=== PATIENT | male | born 1980 | race Caucasian/White ===

== ENCOUNTER 2018-05-23 21:23 | Inpatient (IN) ==
--- NOTE | 2018-05-24 01:09 | ED ---
HPI General Chief Complaint: Psychiatric Symptoms Stated Complaint: transfer/eval Time Seen by Provider: 05/23/18 23:50 Source: patient and EMS Mode of arrival: EMS Limitations: no limitations History of Present Illness HPI Narrative: This is a 37-year-old white male who presents emergency department as a transfer from [facility] in [facility] to be evaluated by the psychiatrist. Patient was placed under Massey act after a intentional overdose of Coricidin. Patient states that he was not attempting to hurt himself but was rather trying to get some sleep. Patient had been medically cleared. He has transferred here for psychiatric evaluation. The patient states that he has not been sleeping in the last month. He was given Ativan, Seroquel and Depakote in the hospital. The patient is requesting something for sleep today. The patient denies any active medical complaints otherwise. Patient denies any suicidal or homicidal ideation. Past medical history: Patient states that he is under the care of a psychiatrist for OCD. Surgical history: Denies Social history: Drinks alcohol on a daily basis Related Data Home Medications Medication Instructions Recorded Confirmed cyclobenzaprine 10 PO HS PRN 05/23/18 propranolol 60 mg PO HS 05/23/18 05/23/18 trazodone 50 PO HS 05/23/18 Allergies Allergy/AdvReac Type Severity Reaction Status Date / Time risperidone [From Risperdal] Allergy Rash Verified 05/23/18 21:48 Review of Systems ROS: all other systems reviewed are negative [facility] Medical History Medical History OCD (obsessive compulsive disorder) (Acute) Social History Social History Substance History: Active Abuse Smoking Status: Never smoker How Often Do You Have a Drink Containing Alcohol: Monthly or less Recent Travel in [place] within the Last 8 Weeks: No Recent Out of Country Travel within the Last 8 Weeks: No Substance Abuse Detail Other: Substance Use Status: Active Substance Abuse Comment: COUGH AND COLD Immunization History Tetanus Immunization: Unsure Exam Narrative Exam Narrative: GENERAL: Well-nourished, well-developed patient. SKIN: Warm and dry. HEAD: Normocephalic and atraumatic. EYES: No scleral icterus. No injection or drainage. ENT: No nasal drainage noted. Mucous membranes pink. Airway patent. NECK: Supple, trachea midline. Moves head freely without obvious discomfort. CARDIOVASCULAR: Regular rate and rhythm without murmurs, gallops, or rubs. RESPIRATORY: Breath sounds equal bilaterally. No accessory muscle use. GASTROINTESTINAL: Abdomen soft, non-tender, nondistended. EXTREMITIES: No cyanosis or edema. BACK: Nontender without obvious deformity. No CVA tenderness. NEURO: Patient is alert and oriented. no sensorimotor deficits. Nonfocal. Normal speech. PSYCH: No delusions. No auditory or visual hallucinations. Course Initial Documented Vital Signs Temperature 98.8 F 05/23/18 22:14 Pulse Rate 93 H 05/23/18 22:14 Respiratory Rate 18 05/23/18 22:14 Blood Pressure 125/92 H 05/23/18 22:14 Pulse Oximetry 98 05/23/18 22:14 Last Documented Vital Signs Temperature 98.8 F 05/23/18 22:14 Pulse Rate 93 H 05/23/18 22:14 Respiratory Rate 18 05/23/18 22:14 Blood Pressure 125/92 H 05/23/18 22:14 Pulse Oximetry 98 05/23/18 22:14 Medical Decision Making MDM Narrative Medical decision making narrative: The patient has already been medically cleared prior to coming to [place] as a transfer. I reviewed the patient's medical record. I have agreed to give the patient 50 mg of Benadryl p.o. here for sleep. Medical Screen Exam Complete: Yes Emergency Medical Condition: Yes Differential Diagnosis Differential Diagnosis: MDM: High Differential diagnoses: Schizophrenia, schizoaffective disorder, bipolar, anxiety, depression, adjustment reaction, mood disorder NOS, ODD, depressive disorder NOS, dementia, dementia with agitation, psychosis NOS, substance induced mood disorder, DMDD, Asperger syndrome, infection,electrolyte abnormality, malingering. Mental health screening discussed with the patient. Psychiatric screen ordered. Discharge Plan Discharge Disposition Patient Disposition: Sign Out(ED Internal Use Only) Discharge Condition Condition: Stable Physicians Team ED Provider: Domenico Diego ED Midlevel Provider: Xavi Brown Primary Care Provider: Primary Care Luisi,Kamini Rxs /Orders / Referrals /Forms Prescriptions: No Action propranolol 60 mg Tablet 60 mg PO HS RF: 0 cyclobenzaprine 10 PO HS PRN (Reason: Pain) RF: 0 trazodone 50 PO HS RF: 0 Discharge Interventions Interventions: Vital Signs Last Done: 05/23/18 22:14 Status ED Status: With Doctor
[2018-05-24] MEDS ORDERED: Aluminum/Magnesium/Simethacone Susp 30 ML UDC PO PRN (09:48)
[2018-05-24] MEDS ORDERED: LORazepam 1 MG Tablet PO PRN (09:48)
[2018-05-24] MEDS ORDERED: Haloperidol Inj 5 MG/ML Ampul IV.PUSH PRN (09:48)
[2018-05-24] MEDS ORDERED: Bisacodyl 10 MG Supp RECTAL PRN (09:48)
--- NOTE | 2018-05-24 12:50 | P.HPPSY ---
Provisional Diagnosis Admission Date: May 24, 2018 09:50 [place] I.: Adjustment disorder with depressed mood vs major depressive disorder, substance- induced mood disorder, history of schizophrenia, alcohol and cannabis use disorder, rule out malingering Competence Certification of Person's Competence To Provide Express and Informed Consent I have personally examined Eliezer Rodriguez, a person being served at [facility] on, May 24, 2018 1243. Express and informed consent means consent voluntarily given in writing, by a competent person, after sufficient explanation and disclosure of the subject matter involved to enable the person to make a knowing and willful decision without any element of force, fraud, deceit, duress, or other form of constraint or coercion. This person is 18 years of age or older, is not now known to be incompetent to consent to treatment with a guardian advocate, and does not have a health care surrogate or proxy currently making medical treatment decisions. I have found this person to be one of the following: [] Competent to provide express and informed consent, as defined above, for voluntary admission to this facility and is competent to provide express and informed consent for treatment. He/she has the consistent capacity to make well reasoned, willful, and knowing decisions concerning his or her medical or mental health treatment. The person fully and consistently understands the purpose of the admission for examination/placement and is fully capable of personally exercising all rights assured under [place] [] Incompetent to provide express and informed consent to voluntary admission, and this is incompetent to provide express and informed consent to treatment. The person must be transferred to involuntary status and a petition for a guardian advocate filed with the Circuit Court. [x] Refusing to provide express and informed consent to voluntary admission but is competent to provide express and informed consent for treatment. The person must be discharged or transferred to involuntary status. Form shall be completed within 24 hours of a person's arrival at the receiving facility and filed in the clinical record of each person: 1. Admitted on a voluntary basis 2. Permitted to provide express and informed consent to his/her own treatment 3. Allowed to transfer from involuntary to voluntary status 4. Prior to permitting a person to consent to his or her own treatment after having been previously found incompetent to consent to treatment. History of Present Illness Capacity: Has capacity History of Present Illness: The patient is a 37-year-old man, domiciled in [place] with his father, single, unemployed, recently released from senior care on May 04, with a self-reported psychiatric history of OCD, anxiety, schizophrenia, alcohol and cannabis use disorder, previous psychiatric hospitalizations, one suicidal attempt by cutting, self cutting without SI, he claims that he has been treated with Seroquel 400 mg at bedtime, diazepam 10 mg 3 times daily, Depakote 500 mg twice daily, but this treatment was interrupted in senior care, no significant medical history, who presents emergency department as a transfer from [facility] in [facility] to be evaluated by the psychiatrist. Patient was placed under Massey act after a intentional overdose of Coricidin. Patient states that he was not attempting to hurt himself but was rather trying to get some sleep, he says that the fact that he has not been taking his medication is affecting him. He reports that he has not been able to sleep for more than 2 weeks now for this reason he has been feeling increasingly depressed. He also reports that the fact that he is not taking his Seroquel and Depakote is making him decompensate. He reports increased hopelessness, helplessness, generalized pessimism, decreased functionality, severe insomnia, poor appetite, and suicidal thoughts, but he does not have any plan. He denies homicidal ideation , visual and auditory hallucinations. The patient is logical, coherent and relevant. Oriented x3. He has been behaving appropriately in the ER, but asking for sleeping medication quite often. PPHx: self-reported psychiatric history of OCD, anxiety, schizophrenia, alcohol and cannabis use disorder, previous psychiatric hospitalizations, one suicidal attempt by cutting, self cutting without SI, he claims that he has been treated with Seroquel 400 mg at bedtime, diazepam 10 mg 3 times daily, Depakote 500 mg twice daily, but this treatment was interrupted in senior care, no significant medical history PMhx: no significant medical history Substance Hx: He reports occasional use of alcohol and marijuana Family Hx: No family psychiatric history Social Hx: Patient was born and raised in [place], he lives in [place] with his father, single, unemployed, multiple incarcerations, recently released on May 04, highest level of education is some college - Inpatient Certification I certify that the inpatient services were ordered in accordance with Medicare regulations governing the order. This includes certification that hospital inpatient services are reasonable and necessary and in the case of services not specified as inpatient-only under 42 CFR 419.22(n), that they are appropriately provided as inpatient services in accordance to with the 2-midnight benchmark under 43 CFR 412.3(e) I certify that inpatient psychiatric hospital services are medically necessary. Evaluation and treatment and/or diagnostic testing are expected to improve the patient's condition. The patient needs on a daily basis, active treatment furnished directly by or requiring the supervision of inpatient psychiatric facility personnel. Estimated Total Length of Stay (Days): 7 Plans for Post Hospital Care: Home Review of Systems All other systems reviewed negative except as stated in HPI Psychiatric: Reports depression, Reports hopelessness, Reports irritability, Reports thoughts of hurting/killing yourself PMFSH - History History Provided By: Patient, Medical Record - Medical History Medical History: Medical History (Last Reviewed 05/24/18 @ 01:08 by HODAN Carey) OCD (obsessive compulsive disorder) - Tobacco History Second Hand Smoke Exposure: No Tobacco Use In Past 30 Days: Yes Smoking Status: Current every day smoker Tobacco Type: Cigars - Alcohol History How Often Do You Have a Drink Containing Alcohol: 4 or more times a week - Substance Use History Substance History: Past History - Substance Use Type Other Status: Active Comment: COUGH AND COLD - Travel History Recent Travel in the [place] Within the Last 8 Weeks: No Recent Travel Out of the Country Within the Last 8 Weeks: No - Immunization History Tetanus Immunization: Unsure Medications and Allergies Active Medications: Active Medications Al Hydrox/Mg Hydrox/Simethicone (Mag-Al Plus Susp Liq) 30 ml PO Q6H PRN PRN Reason: DYSPEPSIA Al Hydroxide/Mg Hydroxide (Milk Of Magnesia Liq) 30 ml PO Q12H PRN PRN Reason: Mild Constipation Bisacodyl (Dulcolax Supp) 10 mg RECTAL DAILY PRN PRN Reason: SEVERE CONSITIPATION Flumazenil (Romazecon Inj) 0.2 mg IV.PUSH Q1M PRN PRN Reason: OVERSEDATION Haloperidol Lactate (Haldol Inj) 1 mg IV.PUSH Q15M PRN PRN Reason: for severe agitation Lactulose (Lactulose Liq) 30 ml PO DAILY PRN PRN Reason: SEVERE CONSITIPATION Lorazepam (Ativan) 1 mg PO Q4H PRN PRN Reason: for CIWA 8-10 Lorazepam (Ativan) 2 mg PO Q2H PRN PRN Reason: for CIWA 11-14 Last Admin: 05/24/18 12:07 Dose: 2 mg Lorazepam (Ativan Inj) 2 mg IV.PUSH Q1H PRN PRN Reason: for CIWA 15-20 Lorazepam (Ativan Inj) 2 mg IV.PUSH Q15M PRN PRN Reason: for CIWA > 20 Lorazepam (Ativan Inj) 1 mg IV.PUSH Q4H PRN PRN Reason: for CIWA 8-10 Lorazepam (Ativan Inj) 2 mg IV.PUSH Q2H PRN PRN Reason: for CIWA 11-14 Propranolol HCl (Inderal La) 60 mg PO HS CHANDA Quetiapine Fumarate (Seroquel) 100 mg PO BID CHANDA Senna/Docusate Sodium (Ariadne-Colace) 1 tab PO BID CHANDA Sennosides (Senokot) 17.2 mg PO Q12H PRN PRN Reason: Moderate Constipation Trazodone HCl (Desyrel) 50 mg PO HS [facility] Allergies Allergy/AdvReac Type Severity Reaction Status Date / Time risperidone [From Risperdal] Allergy Rash Verified 05/23/18 21:48 Home Medications Medication Instructions Recorded Confirmed Type cyclobenzaprine 10 PO HS PRN 05/23/18 History propranolol 60 mg PO HS 05/23/18 05/23/18 History trazodone 50 PO HS 05/23/18 History Exam Vital signs: Vital Signs 05/23/18 22:14 05/24/18 04:00 05/24/18 11:43 Temperature 98.8 F 98.5 F 98.6 F Pulse Rate 93 H 66 87 Respiratory Rate 18 Blood Pressure 125/92 H 111/74 115/71 Pulse Oximetry 98 97 99 Intake & Output 05/23/18 05/24/18 05/24/18 18:59 06:59 18:59 Weight 90.718 kg 82.2 kg Other: Weight On Admission 82.2 kg Narrative: No tremors, no EPS, no withdrawal symptoms, no stiffness, no gait disturbance, no catatonia - Constitutional mild distress - Routine HEENT Exam Head: Present: normocephalic, atraumatic Eye: Present: EOMI, PERRL ENT: Present: mucous membranes moist Mental Status Examination Appearance: Appropriate Consciousness: Alert Orientation: x4 Motor Activity: Normal gait Speech: Unremarkable Language: Adequate Fund of Knowledge: Adequate Attention and Concentration: Adequate Memory: Unremarkable Mood: Sad Affect: Irritable Thought Process & Associations: Intact Thought Content: Appropriate Hallucination Type: None Delusion Type: None Suicidal Ideation: Yes Suicidal Plan: No Suicidal Intention: No Homicidal Ideation: No Homicidal Plan: No Homicidal Intention: No Insight: Poor Judgment: Poor Assessment and Plan - Assessment (1) Adjustment disorder with depressed mood Code(s): F43.21 - Adjustment disorder with depressed mood Status: Acute - Plan Plan: On psychiatric evaluation today the patient presents irritable, reporting about 2 weeks of increased difficulty to sleep, described as severe insomnia, in the context of not taking his psychotropics which have led to increased sense of hopelessness, helplessness, anhedonia, generalized pessimism, decreased energy, persistent suicidal thoughts, no plan. Patient has overdosed with medications 2 days ago trying to get to sleep. He has a psychiatric history of reported schizophrenia, anxiety, previous psychiatric admissions, suicidal attempts, he claims that he is supposed to be diazepam 10 mg, Seroquel 400 mg, Depakote 500 mg twice daily, this has not been confirmed. He was recently released from senior care about 2 weeks ago, during his incarceration her psychotropic regimen was interrupted and since then he has been decompensated. Unclear at this moment if current presentation is related with a mood disorder decompensation, substance abuse related issue, a personality pathology or even conscious simulation, but the patient has an increased risk of danger to self and he will be admitted in psychiatry for stabilization, observation and safety. We will start Seroquel 100 mg twice daily, trazodone 100 mg at bedtime. Also [facility] protocol to protect the patient from alcohol and benzodiazepines withdrawal. Transfer to 2700 unit. Justification for Continued Inpatient Stay: Continue admission
[2018-05-24] MEDS: QUEtiapine 100 MG Tablet PO SCH ×2 (12:52→20:55)
[2018-05-24] MEDS: Senna/Docusate Sodium 8.6/50 MG Tablet PO SCH (20:55)
[2018-05-24] MEDS: Propranolol LA 60 MG Capsule PO SCH (20:55)
[2018-05-24] MEDS ORDERED: traZODone 50 MG Tablet PO SCH (21:00)
[2018-05-25 08:01] LABS: Anion Gap 7 meq/L (5-15); Blood Urea Nitrogen 14 mg/dL (7-18); Calcium 9.4 mg/dL (8.5-10.1); Carbon Dioxide 29.5 meq/L (21.0-32.0); Chloride 104 meq/L (98-107); Cholesterol 162 mg/dL (120-200); Glomerular Filtration Rate Greater Than 89 mL/min (>89); Glucose,Random 86 mg/dL (74-106); Potassium 3.9 meq/L (3.5-5.1); Sodium 140 meq/L (136-145)
[2018-05-25 08:03] LABS: Chol/HDL Ratio 3.81 Ratio; HDL Cholesterol 42.5 mg/dL (40.0-60.0); LDL Cholesterol,Calculated 75 mg/dL (0-99); Triglycerides 222 mg/dL (42-150)
[2018-05-25] MEDS: Senna/Docusate Sodium 8.6/50 MG Tablet PO SCH ×2 (08:27→20:31)
[2018-05-25] MEDS: QUEtiapine 100 MG Tablet PO SCH (08:27)
--- NOTE | 2018-05-25 13:39 | P.PNPSY ---
Subjective Chief Complaint: Follow-up for depression, anxiety, and chronic insomnia. Remarks: Patient seen for follow-up, chart reviewed, patient discussed with nursing staff ; we reviewed the patient's mood, thoughts, and behaviors from overnight and this morning. Nursing reports the patient has been mostly seclusive to his room quite cooperative. The patient was seen at bedside today after breakfast. He denies a history of bipolar disorder or symptoms of psychosis other than hypnagogic or hypnopompic hallucinations when sleep deprived. He reports a past diagnosis of OCD that he describes as anxious ruminations about stressors in his life and he cannot stop himself thinking about it. He denies any compulsive behaviors. He denies ego dystonic thoughts or actions. He reports failed treatment with [facility] in the past. He is also been treated with buspirone and most of the SSRIs. Patient has never been tried on an SSRI. Patient reports being treated with Valium 10 mg 3 times a day for the past 2 years and this was indeed confirmed with a E force. Patient reports that Seroquel and Depakote were started while he was under the Massey act at the referring hospital and he reports good response to Seroquel and he would like to continue. Patient acknowledges that he needs help getting his mood and sleep -wake cycle stabilized and requests voluntary admission. Review of Systems All other systems reviewed negative except as stated in HPI Mental Status Examination Appearance: Appropriate Consciousness: Alert Orientation: x4 Motor Activity: Normal gait Speech: Unremarkable Language: Adequate Fund of Knowledge: Adequate Attention and Concentration: Adequate Memory: Unremarkable Mood: Sad, Anxious Affect: Sad, Blunt Thought Process & Associations: Intact Thought Content: Appropriate Hallucination Type: None Delusion Type: None Suicidal Ideation: Yes (Passive wish but no active ideations or plan) Suicidal Plan: No Suicidal Intention: No Homicidal Ideation: No Homicidal Plan: No Homicidal Intention: No Insight: Poor Judgment: Poor Assessment and Plan - Assessment (1) Major depressive disorder, recurrent, severe w/o psychotic behavior Code(s): F33.2 - Major depressive disorder, recurrent severe without psychotic features Status: Acute (2) Anxiety disorder, unspecified Code(s): F41.9 - Anxiety disorder, unspecified Status: Acute - Plan Plan: 05/25/2018: Fair response to treatment, the patient reportedly slept 8 hours overnight however he did not feel that his sleep was restorative. Review of the patient's psychiatric history indicates that he suffers from chronic anxiety with recurrent depressive episodes and had an exacerbation after being off his medications for 2 weeks while incarcerated. Patient most likely had developed a dependency on Valium over the last 2 years which further complicated his ability to tolerate his recent incarceration. Patient reportedly has tried many different treatments for his anxiety and mood and after discussion of risks benefits side effects and alternatives he chooses to start an SSRI for treatment of anxiety and depression and continue Seroquel as an adjunctive treatment of his depression and continue buspirone as an adjunctive treatment of his anxiety. Continue inpatient stabilization and treatment but convert to voluntary status. Increase Seroquel to 400 mg at bedtime for adjunctive treatment of mood and anxiety as this dose was tolerated and effective prior to this admission. Start Cymbalta 30 mg/day for treatment of depression and anxiety. -Start buspirone 10 mg 3 times a day for adjunctive treatment of anxiety. Discharge planning: Patient reports that he has an outpatient psychiatrist but may need assistance with housing. Justification for Continued Inpatient Stay: Patient remains an elevated risk for self-harm as evidenced by recent overdose and will require further inpatient stabilization and preparation of a safe discharge plan. Moving patient to a less restrictive environment at this time may result in decompensation.
[2018-05-25 15:32] LABS: Hemoglobin A1c 4.7 % (4.3-6.0)
[2018-05-25] MEDS: Propranolol LA 60 MG Capsule PO SCH (20:31)
[2018-05-26] MEDS: Senna/Docusate Sodium 8.6/50 MG Tablet PO SCH (08:18)
[2018-05-26] MEDS ORDERED: QUEtiapine 25 MG Tablet PO PRN (11:15)
[2018-05-26] MEDS: Methocarbamol 500 MG Tablet PO PRN ×2 (12:36→22:10)
--- NOTE | 2018-05-26 13:50 | P.PNPSY ---
Subjective Chief Complaint: Follow-up for depression, anxiety, and chronic insomnia. Remarks: Patient seen for follow-up, chart reviewed, patient discussed with nursing staff ; we reviewed the patient's mood, thoughts, and behaviors from overnight and this morning. Nursing reports the patient has been mostly seclusive to his room but cooperative. He did refuse breakfast this morning and complained of poor sleep. The patient has been asking for additional anxiolytics and complaining of severe headache and muscle tension pain. The patient was seen at bedside where he had a blanket pulled over his head but responded quickly to his name. Complains of continued depressed mood and anxiety as well as worsening headache pain with muscle tension that he feels radiating from neck into head. The patient insists that he has been treated for similar pains as well as anxiety with Valium 10 mg 3 times a day as needed. This prescription has been verified with the force but the patient acknowledges that he no longer has access to this medication and has been off this medication for over 2 weeks. We discussed risks benefits side effects and alternative treatments for both anxiety as well as headaches and muscle tension and the patient insists that he has failed treatment with Flexeril, baclofen, hydroxyzine, as well as the majority of SSRIs. Patient has tolerated the start of Cymbalta and restart of his Seroquel but denies efficacy with either anxiety mood or his sleep. The patient expressed understanding that chronic use of Valium for anxiety is not supported by the evidence however he insists that it has continued its efficacy as far as his head and neck pain. Review of Systems Constitutional: Reports daytime sleepiness Neurologic: Reports headache(s) Psychiatric: Reports abnormal sleep pattern, Reports anxiety, Reports depression , Denies hearing things others do not hear, Denies paranoia, Denies seeing things others do not see, Denies sensing things others do not sense, Denies thoughts of hurting/killing others, Denies thoughts of hurting/killing yourself Mental Status Examination Appearance: Appropriate Consciousness: Alert Orientation: x4 Motor Activity: Normal gait Speech: Unremarkable Language: Adequate Fund of Knowledge: Adequate Attention and Concentration: Adequate Memory: Unremarkable Mood: Sad, Anxious Affect: Sad, Blunt Thought Process & Associations: Intact Thought Content: Appropriate Hallucination Type: None Delusion Type: None Suicidal Ideation: Yes (Passive wish but no active ideations or plan) Suicidal Plan: No Suicidal Intention: No Homicidal Ideation: No Homicidal Plan: No Homicidal Intention: No Insight: Poor Judgment: Poor Assessment and Plan - Assessment (1) Major depressive disorder, recurrent, severe w/o psychotic behavior Code(s): F33.2 - Major depressive disorder, recurrent severe without psychotic features Status: Acute (2) Anxiety disorder, unspecified Code(s): F41.9 - Anxiety disorder, unspecified Status: Acute - Plan Plan: 05/25/2018: Fair response to treatment, the patient reportedly slept 8 hours overnight however he did not feel that his sleep was restorative. Review of the patient's psychiatric history indicates that he suffers from chronic anxiety with recurrent depressive episodes and had an exacerbation after being off his medications for 2 weeks while incarcerated. Patient most likely had developed a dependency on Valium over the last 2 years which further complicated his ability to tolerate his recent incarceration. Patient reportedly has tried many different treatments for his anxiety and mood and after discussion of risks benefits side effects and alternatives he chooses to start an SSRI for treatment of anxiety and depression and continue Seroquel as an adjunctive treatment of his depression and continue buspirone as an adjunctive treatment of his anxiety. Continue inpatient stabilization and treatment but convert to voluntary status. Increase Seroquel to 400 mg at bedtime for adjunctive treatment of mood and anxiety as this dose was tolerated and effective prior to this admission. Start Cymbalta 30 mg/day for treatment of depression and anxiety. -Start buspirone 10 mg 3 times a day for adjunctive treatment of anxiety. Discharge planning: Patient reports that he has an outpatient psychiatrist but may need assistance with housing. 05/26/2018: Unsatisfactory response to treatment, the patient's anxiety and mood have yet to improve and he remains isolative to his room. He suggests that part of his isolation and anxiety is due to worsening headache and muscle tension pain. I reviewed the risks benefits side effects and alternative treatments for both anxiety and muscle tension pain extensively with the patient any expressed a clear understanding of these risks and benefits and alternatives and he chooses to restart his Valium on a much reduced dose as needed for severe anxiety and muscle tension but also the addition of Seroquel at a low-dose for mild anxiety and the addition of Robaxin as a trial of muscle tension pain and trazodone as needed for insomnia. Continue inpatient stabilization and treatment, voluntary status. Continue Seroquel to 400 mg at bedtime for adjunctive treatment of mood and anxiety as this dose was tolerated and effective prior to this admission. Continue Cymbalta 30 mg/day for treatment of depression and anxiety. -Continue buspirone 10 mg 3 times a day for adjunctive treatment of anxiety. Start trazodone 100 mg at bedtime as needed for insomnia. Give Ativan 1 mg IM x1 for treatment of severe headache and muscle tension as this was effective in his recent ER visit. Start Valium 5 mg every 12 hours as needed for moderate to severe anxiety. Start Seroquel 25 mg twice a day as needed for mild anxiety. Start Robaxin 1000 mg every 8 hours as needed for muscle tension pain. Discharge planning: Patient reports that he has an outpatient psychiatrist but may need assistance with housing. Justification for Continued Inpatient Stay: The patient remains a high risk for suicide as evidenced by his history of suicide attempts and recent suicidal behavior and severe symptoms of anxiety depression and chronic pain.
[2018-05-26] MEDS: Propranolol LA 60 MG Capsule PO SCH (22:04)
[2018-05-26] MEDS: diazePAM 5 MG Tablet PO PRN (22:10)
[2018-05-26] MEDS: traZODone 50 MG Tablet PO PRN (22:10)
--- NOTE | 2018-05-27 15:06 | P.PNPSY ---
Subjective Chief Complaint: Follow-up for depression, anxiety, and chronic insomnia. Remarks: Patient seen for follow-up, chart reviewed, patient discussed with nursing staff ; we reviewed the patient's mood, thoughts, and behaviors from overnight and this morning. Nurse reports that the patient slept 8 hours overnight. Continues to isolate to his room. The patient was seen at bedside after breakfast. He reports feeling a little bit better but remains anxious and lacking the motivation to get out of bed. He requests increase of the Cymbalta. He continues to complain of restless sleep despite nursing observation on the contrary. Mental Status Examination Appearance: Appropriate Consciousness: Alert Orientation: x4 Motor Activity: Normal gait Speech: Unremarkable Language: Adequate Fund of Knowledge: Adequate Attention and Concentration: Adequate Memory: Unremarkable Mood: Sad, Anxious Affect: Sad, Blunt Thought Process & Associations: Intact Thought Content: Appropriate Hallucination Type: None Delusion Type: None Suicidal Ideation: Yes (Passive wish but no active ideations or plan) Suicidal Plan: No Suicidal Intention: No Homicidal Ideation: No Homicidal Plan: No Homicidal Intention: No Insight: Poor Judgment: Poor Assessment and Plan - Assessment (1) Major depressive disorder, recurrent, severe w/o psychotic behavior Code(s): F33.2 - Major depressive disorder, recurrent severe without psychotic features Status: Acute (2) Anxiety disorder, unspecified Code(s): F41.9 - Anxiety disorder, unspecified Status: Acute - Plan Plan: 05/25/2018: Fair response to treatment, the patient reportedly slept 8 hours overnight however he did not feel that his sleep was restorative. Review of the patient's psychiatric history indicates that he suffers from chronic anxiety with recurrent depressive episodes and had an exacerbation after being off his medications for 2 weeks while incarcerated. Patient most likely had developed a dependency on Valium over the last 2 years which further complicated his ability to tolerate his recent incarceration. Patient reportedly has tried many different treatments for his anxiety and mood and after discussion of risks benefits side effects and alternatives he chooses to start an SSRI for treatment of anxiety and depression and continue Seroquel as an adjunctive treatment of his depression and continue buspirone as an adjunctive treatment of his anxiety. Continue inpatient stabilization and treatment but convert to voluntary status. Increase Seroquel to 400 mg at bedtime for adjunctive treatment of mood and anxiety as this dose was tolerated and effective prior to this admission. Start Cymbalta 30 mg/day for treatment of depression and anxiety. -Start buspirone 10 mg 3 times a day for adjunctive treatment of anxiety. Discharge planning: Patient reports that he has an outpatient psychiatrist but may need assistance with housing. 05/26/2018: Unsatisfactory response to treatment, the patient's anxiety and mood have yet to improve and he remains isolative to his room. He suggests that part of his isolation and anxiety is due to worsening headache and muscle tension pain. I reviewed the risks benefits side effects and alternative treatments for both anxiety and muscle tension pain extensively with the patient any expressed a clear understanding of these risks and benefits and alternatives and he chooses to restart his Valium on a much reduced dose as needed for severe anxiety and muscle tension but also the addition of Seroquel at a low-dose for mild anxiety and the addition of Robaxin as a trial of muscle tension pain and trazodone as needed for insomnia. Continue inpatient stabilization and treatment, voluntary status. Continue Seroquel to 400 mg at bedtime for adjunctive treatment of mood and anxiety as this dose was tolerated and effective prior to this admission. Continue Cymbalta 30 mg/day for treatment of depression and anxiety. -Continue buspirone 10 mg 3 times a day for adjunctive treatment of anxiety. Start trazodone 100 mg at bedtime as needed for insomnia. Give Ativan 1 mg IM x1 for treatment of severe headache and muscle tension as this was effective in his recent ER visit. Start Valium 5 mg every 12 hours as needed for moderate to severe anxiety. Start Seroquel 25 mg twice a day as needed for mild anxiety. Start Robaxin 1000 mg every 8 hours as needed for muscle tension pain. Discharge planning: Patient reports that he has an outpatient psychiatrist but may need assistance with housing. 05/27/2018: Fair response to treatment, the patient is reporting minimal improvements in mood anxiety and pain and he is motivated to continue the current treatment plan with further increases as indicated. Continue inpatient stabilization and treatment plan as already noted. Increase Cymbalta to 60 mg a day for treatment of depression and anxiety. Start melatonin 5 mg at bedtime for adjunctive treatment of chronic insomnia. Justification for Continued Inpatient Stay: Patient remains an elevated risk for self-harm and will require further inpatient stabilization and preparation of a safe discharge plan. Moving patient to a less restrictive environment at this time may result in decompensation.
[2018-05-27] MEDS: diazePAM 5 MG Tablet PO PRN (17:17)
[2018-05-27] MEDS: Propranolol LA 60 MG Capsule PO SCH (20:27)
[2018-05-27] MEDS: Melatonin 5 MG Tablet PO SCH (20:27)
[2018-05-27] MEDS: traZODone 50 MG Tablet PO PRN (20:27)
--- NOTE | 2018-05-28 13:26 | P.PNPSY ---
Subjective Chief Complaint: Follow-up for depression, anxiety, and chronic insomnia. Remarks: Reviewed electronic medical record and discussed with nursing staff. Patient continues to be somewhat seclusive. Eating and sleeping well. Denies any suicidal or homicidal ideations. No concerns from patient regarding his medications. Review of Systems All other systems reviewed negative except as stated in HPI Mental Status Examination Appearance: Appropriate Consciousness: Alert Orientation: x4 Motor Activity: Normal gait Speech: Unremarkable Language: Adequate Fund of Knowledge: Adequate Attention and Concentration: Adequate Memory: Unremarkable Mood: Sad, Anxious Affect: Sad, Blunt Thought Process & Associations: Intact Thought Content: Appropriate Hallucination Type: None Delusion Type: None Suicidal Ideation: Yes (Passive wish but no active ideations or plan) Suicidal Plan: No Suicidal Intention: No Homicidal Ideation: No Homicidal Plan: No Homicidal Intention: No Insight: Poor Judgment: Poor Assessment and Plan - Assessment (1) Major depressive disorder, recurrent, severe w/o psychotic behavior Code(s): F33.2 - Major depressive disorder, recurrent severe without psychotic features Status: Acute (2) Anxiety disorder, unspecified Code(s): F41.9 - Anxiety disorder, unspecified Status: Acute - Plan Plan: 05/28/18 continue current treatment plan. 05/25/2018: Fair response to treatment, the patient reportedly slept 8 hours overnight however he did not feel that his sleep was restorative. Review of the patient's psychiatric history indicates that he suffers from chronic anxiety with recurrent depressive episodes and had an exacerbation after being off his medications for 2 weeks while incarcerated. Patient most likely had developed a dependency on Valium over the last 2 years which further complicated his ability to tolerate his recent incarceration. Patient reportedly has tried many different treatments for his anxiety and mood and after discussion of risks benefits side effects and alternatives he chooses to start an SSRI for treatment of anxiety and depression and continue Seroquel as an adjunctive treatment of his depression and continue buspirone as an adjunctive treatment of his anxiety. Continue inpatient stabilization and treatment but convert to voluntary status. Increase Seroquel to 400 mg at bedtime for adjunctive treatment of mood and anxiety as this dose was tolerated and effective prior to this admission. Start Cymbalta 30 mg/day for treatment of depression and anxiety. -Start buspirone 10 mg 3 times a day for adjunctive treatment of anxiety. Discharge planning: Patient reports that he has an outpatient psychiatrist but may need assistance with housing. 05/26/2018: Unsatisfactory response to treatment, the patient's anxiety and mood have yet to improve and he remains isolative to his room. He suggests that part of his isolation and anxiety is due to worsening headache and muscle tension pain. I reviewed the risks benefits side effects and alternative treatments for both anxiety and muscle tension pain extensively with the patient any expressed a clear understanding of these risks and benefits and alternatives and he chooses to restart his Valium on a much reduced dose as needed for severe anxiety and muscle tension but also the addition of Seroquel at a low-dose for mild anxiety and the addition of Robaxin as a trial of muscle tension pain and trazodone as needed for insomnia. Continue inpatient stabilization and treatment, voluntary status. Continue Seroquel to 400 mg at bedtime for adjunctive treatment of mood and anxiety as this dose was tolerated and effective prior to this admission. Continue Cymbalta 30 mg/day for treatment of depression and anxiety. -Continue buspirone 10 mg 3 times a day for adjunctive treatment of anxiety. Start trazodone 100 mg at bedtime as needed for insomnia. Give Ativan 1 mg IM x1 for treatment of severe headache and muscle tension as this was effective in his recent ER visit. Start Valium 5 mg every 12 hours as needed for moderate to severe anxiety. Start Seroquel 25 mg twice a day as needed for mild anxiety. Start Robaxin 1000 mg every 8 hours as needed for muscle tension pain. Discharge planning: Patient reports that he has an outpatient psychiatrist but may need assistance with housing. 05/27/2018: Fair response to treatment, the patient is reporting minimal improvements in mood anxiety and pain and he is motivated to continue the current treatment plan with further increases as indicated. Continue inpatient stabilization and treatment plan as already noted. Increase Cymbalta to 60 mg a day for treatment of depression and anxiety. Start melatonin 5 mg at bedtime for adjunctive treatment of chronic insomnia. Justification for Continued Inpatient Stay: Moving patient to a less restrictive environment may result in his decompensation.
[2018-05-28] MEDS: diazePAM 5 MG Tablet PO PRN (15:34)
[2018-05-28] MEDS: Methocarbamol 500 MG Tablet PO PRN (17:10)
[2018-05-28] MEDS: Melatonin 5 MG Tablet PO SCH (20:22)
[2018-05-28] MEDS: traZODone 50 MG Tablet PO PRN (20:23)
[2018-05-28] MEDS: Propranolol LA 60 MG Capsule PO SCH (20:23)
[2018-05-29] MEDS: traZODone 50 MG Tablet PO PRN (00:34)
--- NOTE | 2018-05-29 14:35 | P.PNPSY ---
Subjective Chief Complaint: Follow-up for depression, anxiety, and chronic insomnia. Remarks: Patient seen for follow-up, chart reviewed, patient discussed with nursing staff ; we reviewed the patient's mood, thoughts, and behaviors from overnight and this morning. Nursing reports the patient remains reclusive to his room and seems to be medication focused. There is been no signs the patient is responding to internal stimuli or that he is experiencing increases in anxiety. Patient was seen at bedside after breakfast where he is asleep in bed but easy to awaken. Patient continues to complain of difficulty falling asleep and a lack of restorative sleep. He complains of feeling "numb" and he suspects it is from the Seroquel and he would like to try an alternative. As for his anxiety and tension headaches, the patient reports that the current dose of Valium is not satisfactory and he would like an increase back to the 10 mg that he is used for many years but he agrees to use strictly as needed. We discussed risks benefits side effects and alternatives and the patient chooses to stop the Seroquel and increase his trazodone and restart Ambien as needed for delayed sleep onset. Patient denies active suicidal ideations but expressed concern that he would do something to harm himself if discharged without better control of his mood and sleep. Review of Systems All other systems reviewed negative except as stated in HPI Mental Status Examination Appearance: Appropriate Consciousness: Alert Orientation: x4 Motor Activity: Normal gait Speech: Unremarkable Language: Adequate Fund of Knowledge: Adequate Attention and Concentration: Adequate Memory: Unremarkable Mood: Sad, Anxious Affect: Sad, Blunt Thought Process & Associations: Intact Thought Content: Appropriate Hallucination Type: None Delusion Type: None Suicidal Ideation: Yes (Passive wish but no active ideations or plan) Suicidal Plan: No Suicidal Intention: No Homicidal Ideation: No Homicidal Plan: No Homicidal Intention: No Insight: Poor Judgment: Poor Assessment and Plan - Assessment (1) Major depressive disorder, recurrent, severe w/o psychotic behavior Code(s): F33.2 - Major depressive disorder, recurrent severe without psychotic features Status: Acute (2) Anxiety disorder, unspecified Code(s): F41.9 - Anxiety disorder, unspecified Status: Acute - Plan Plan: 05/28/18 continue current treatment plan. 05/25/2018: Fair response to treatment, the patient reportedly slept 8 hours overnight however he did not feel that his sleep was restorative. Review of the patient's psychiatric history indicates that he suffers from chronic anxiety with recurrent depressive episodes and had an exacerbation after being off his medications for 2 weeks while incarcerated. Patient most likely had developed a dependency on Valium over the last 2 years which further complicated his ability to tolerate his recent incarceration. Patient reportedly has tried many different treatments for his anxiety and mood and after discussion of risks benefits side effects and alternatives he chooses to start an SSRI for treatment of anxiety and depression and continue Seroquel as an adjunctive treatment of his depression and continue buspirone as an adjunctive treatment of his anxiety. Continue inpatient stabilization and treatment but convert to voluntary status. Increase Seroquel to 400 mg at bedtime for adjunctive treatment of mood and anxiety as this dose was tolerated and effective prior to this admission. Start Cymbalta 30 mg/day for treatment of depression and anxiety. -Start buspirone 10 mg 3 times a day for adjunctive treatment of anxiety. Discharge planning: Patient reports that he has an outpatient psychiatrist but may need assistance with housing. 05/26/2018: Unsatisfactory response to treatment, the patient's anxiety and mood have yet to improve and he remains isolative to his room. He suggests that part of his isolation and anxiety is due to worsening headache and muscle tension pain. I reviewed the risks benefits side effects and alternative treatments for both anxiety and muscle tension pain extensively with the patient any expressed a clear understanding of these risks and benefits and alternatives and he chooses to restart his Valium on a much reduced dose as needed for severe anxiety and muscle tension but also the addition of Seroquel at a low-dose for mild anxiety and the addition of Robaxin as a trial of muscle tension pain and trazodone as needed for insomnia. Continue inpatient stabilization and treatment, voluntary status. Continue Seroquel to 400 mg at bedtime for adjunctive treatment of mood and anxiety as this dose was tolerated and effective prior to this admission. Continue Cymbalta 30 mg/day for treatment of depression and anxiety. -Continue buspirone 10 mg 3 times a day for adjunctive treatment of anxiety. Start trazodone 100 mg at bedtime as needed for insomnia. Give Ativan 1 mg IM x1 for treatment of severe headache and muscle tension as this was effective in his recent ER visit. Start Valium 5 mg every 12 hours as needed for moderate to severe anxiety. Start Seroquel 25 mg twice a day as needed for mild anxiety. Start Robaxin 1000 mg every 8 hours as needed for muscle tension pain. Discharge planning: Patient reports that he has an outpatient psychiatrist but may need assistance with housing. 05/27/2018: Fair response to treatment, the patient is reporting minimal improvements in mood anxiety and pain and he is motivated to continue the current treatment plan with further increases as indicated. Continue inpatient stabilization and treatment plan as already noted. Increase Cymbalta to 60 mg a day for treatment of depression and anxiety. Start melatonin 5 mg at bedtime for adjunctive treatment of chronic insomnia. 05/29/2018: Unsatisfactory response to treatment, the patient continues to obsess about his sleep and is not satisfied with the current treatments. The patient was observed over the weekend to be up and out of bed more often but generally he remained seclusive. Continue inpatient stabilization and treatment for his anxiety and depression. Anticipate further improvements with more time on his antidepressant therapy. Discontinue Seroquel due to a lack of efficacy with his sleep and complaints of side effects. Increase trazodone to 200 mg a day and change it to a scheduled dose for treatment of insomnia. Retry Ambien 10 mg at bedtime as needed for insomnia, as the patient reports that this had been mild to moderately effective in the past. Increase Valium to 10 mg twice a day as needed for anxiety as this is the primary medication is used for many years to help with anxiety with obsessive ruminations and headaches. Patient agrees to strictly as needed. Justification for Continued Inpatient Stay: Patient remains an elevated risk for self-harm and will require further inpatient stabilization and preparation of a safe discharge plan. Moving patient to a less restrictive environment at this time may result in decompensation.
[2018-05-29] MEDS: Methocarbamol 500 MG Tablet PO PRN (19:29)
[2018-05-29] MEDS: Melatonin 5 MG Tablet PO SCH (20:28)
[2018-05-29] MEDS: Propranolol LA 60 MG Capsule PO SCH (20:28)
--- NOTE | 2018-05-30 10:41 | P.PNPSY ---
Subjective Chief Complaint: Follow-up for depression, anxiety, and chronic insomnia. Remarks: Patient seen for follow-up, chart reviewed, patient discussed with nursing staff ; we reviewed the patient's mood, thoughts, and behaviors from overnight and this morning. Nurse reports that patient remains secluded to his room and seems to sleep throughout the day and has been observed to sleep at night despite his insistence that he is not sleeping. Nursing describes the patient is med seeking as he does not present with an affect that appears anxious or in pain yet he is routinely asking for his Valium to treat symptoms of anxiety and pain. Patient is not participating in groups. Patient was seen at bedside after breakfast and seemed to be sleeping but easily awakened by his name. The patient denies suicidal ideations depression as a 6 out of 10 and his anxiety has a 6 out of 10. He continues to complain of unsatisfactory control of his sleep and intermittent obsessive ruminations. We discussed the limited expectations for response to inpatient treatment if he is unable or unwilling to participate in the inpatient programming and he acknowledges that he would prefer to continue his recovery as an outpatient but he remains anxious and uncertain at about follow-up and housing. The patient agreed to work with the unit aids social worker to come up with a safe discharge plan for this week. Mental Status Examination Appearance: Appropriate Consciousness: Alert Orientation: x4 Motor Activity: Normal gait Speech: Unremarkable Language: Adequate Fund of Knowledge: Adequate Attention and Concentration: Adequate Memory: Unremarkable Mood: Sad, Anxious Affect: Sad, Blunt Thought Process & Associations: Intact Thought Content: Appropriate Hallucination Type: None Delusion Type: None Suicidal Ideation: No Suicidal Plan: No Suicidal Intention: No Homicidal Ideation: No Homicidal Plan: No Homicidal Intention: No Insight: Poor Judgment: Poor Assessment and Plan - Assessment (1) Major depressive disorder, recurrent, severe w/o psychotic behavior Code(s): F33.2 - Major depressive disorder, recurrent severe without psychotic features Status: Acute (2) Anxiety disorder, unspecified Code(s): F41.9 - Anxiety disorder, unspecified Status: Acute - Plan Plan: 05/28/18 continue current treatment plan. 05/25/2018: Fair response to treatment, the patient reportedly slept 8 hours overnight however he did not feel that his sleep was restorative. Review of the patient's psychiatric history indicates that he suffers from chronic anxiety with recurrent depressive episodes and had an exacerbation after being off his medications for 2 weeks while incarcerated. Patient most likely had developed a dependency on Valium over the last 2 years which further complicated his ability to tolerate his recent incarceration. Patient reportedly has tried many different treatments for his anxiety and mood and after discussion of risks benefits side effects and alternatives he chooses to start an SSRI for treatment of anxiety and depression and continue Seroquel as an adjunctive treatment of his depression and continue buspirone as an adjunctive treatment of his anxiety. Continue inpatient stabilization and treatment but convert to voluntary status. Increase Seroquel to 400 mg at bedtime for adjunctive treatment of mood and anxiety as this dose was tolerated and effective prior to this admission. Start Cymbalta 30 mg/day for treatment of depression and anxiety. -Start buspirone 10 mg 3 times a day for adjunctive treatment of anxiety. Discharge planning: Patient reports that he has an outpatient psychiatrist but may need assistance with housing. 05/26/2018: Unsatisfactory response to treatment, the patient's anxiety and mood have yet to improve and he remains isolative to his room. He suggests that part of his isolation and anxiety is due to worsening headache and muscle tension pain. I reviewed the risks benefits side effects and alternative treatments for both anxiety and muscle tension pain extensively with the patient any expressed a clear understanding of these risks and benefits and alternatives and he chooses to restart his Valium on a much reduced dose as needed for severe anxiety and muscle tension but also the addition of Seroquel at a low-dose for mild anxiety and the addition of Robaxin as a trial of muscle tension pain and trazodone as needed for insomnia. Continue inpatient stabilization and treatment, voluntary status. Continue Seroquel to 400 mg at bedtime for adjunctive treatment of mood and anxiety as this dose was tolerated and effective prior to this admission. Continue Cymbalta 30 mg/day for treatment of depression and anxiety. -Continue buspirone 10 mg 3 times a day for adjunctive treatment of anxiety. Start trazodone 100 mg at bedtime as needed for insomnia. Give Ativan 1 mg IM x1 for treatment of severe headache and muscle tension as this was effective in his recent ER visit. Start Valium 5 mg every 12 hours as needed for moderate to severe anxiety. Start Seroquel 25 mg twice a day as needed for mild anxiety. Start Robaxin 1000 mg every 8 hours as needed for muscle tension pain. Discharge planning: Patient reports that he has an outpatient psychiatrist but may need assistance with housing. 05/27/2018: Fair response to treatment, the patient is reporting minimal improvements in mood anxiety and pain and he is motivated to continue the current treatment plan with further increases as indicated. Continue inpatient stabilization and treatment plan as already noted. Increase Cymbalta to 60 mg a day for treatment of depression and anxiety. Start melatonin 5 mg at bedtime for adjunctive treatment of chronic insomnia. 05/29/2018: Unsatisfactory response to treatment, the patient continues to obsess about his sleep and is not satisfied with the current treatments. The patient was observed over the weekend to be up and out of bed more often but generally he remained seclusive. Continue inpatient stabilization and treatment for his anxiety and depression. Anticipate further improvements with more time on his antidepressant therapy. Discontinue Seroquel due to a lack of efficacy with his sleep and complaints of side effects. Increase trazodone to 200 mg a day and change it to a scheduled dose for treatment of insomnia. Retry Ambien 10 mg at bedtime as needed for insomnia, as the patient reports that this had been mild to moderately effective in the past. Increase Valium to 10 mg twice a day as needed for anxiety as this is the primary medication is used for many years to help with anxiety with obsessive ruminations and headaches. Patient agrees to strictly as needed. 05/30/2018: Fair response to treatment, the patient's suicidal ideations have resolved and his ratings for depression and anxiety have improved. He was unable to start the regimen documented above for sleep last night because of the lack of informed consent signed. The patient will start tonight with a replacement of his Seroquel with a higher dose of trazodone and using Ambien as for delayed sleep onset. Discharge planning: The patient will need assistance with referrals for outpatient mental health treatment as well as long term options. Anticipate discharge this week. Justification for Continued Inpatient Stay: Patient remains an elevated risk for self-harm and will require further inpatient stabilization and preparation of a safe discharge plan. Moving patient to a less restrictive environment at this time may result in decompensation.
[2018-05-30] MEDS: Methocarbamol 500 MG Tablet PO PRN (12:11)
[2018-05-30] MEDS: traZODone 50 MG Tablet PO SCH (20:48)
[2018-05-30] MEDS: Melatonin 5 MG Tablet PO SCH (20:49)
[2018-05-30] MEDS: Propranolol LA 60 MG Capsule PO SCH (20:49)
--- NOTE | 2018-05-31 11:15 | P.DSPSY ---
Psychiatry Discharge Summary Inpatient Psychiatric care?: Yes Advance Directives: No Mental Health Advance Directive: No Health Care Proxy: No - Admission Admission Date: May 24, 2018 09:50 - Admission Diagnosis (1) Major depressive disorder, recurrent, severe w/o psychotic behavior Code(s): F33.2 - Major depressive disorder, recurrent severe without psychotic features (2) Anxiety disorder, unspecified Code(s): F41.9 - Anxiety disorder, unspecified Brief History: The patient is a 37-year-old man, domiciled in [place] with his father, single, unemployed, recently released from group home on May 04, with a self-reported psychiatric history of OCD, anxiety, schizophrenia, alcohol and cannabis use disorder, previous psychiatric hospitalizations, one suicidal attempt by cutting, self cutting without SI, he claims that he has been treated with Seroquel 400 mg at bedtime, diazepam 10 mg 3 times daily, Depakote 500 mg twice daily, but this treatment was interrupted in group home, no significant medical history, who presents emergency department as a transfer from [facility] in [facility] to be evaluated by the psychiatrist. Patient was placed under [facility] act after a intentional overdose of Coricidin. Patient states that he was not attempting to hurt himself but was rather trying to get some sleep, he says that the fact that he has not been taking his medication is affecting him. He reports that he has not been able to sleep for more than 2 weeks now for this reason he has been feeling increasingly depressed. He also reports that the fact that he is not taking his Seroquel and Depakote is making him decompensate. He reports increased hopelessness, helplessness, generalized pessimism, decreased functionality, severe insomnia, poor appetite, and suicidal thoughts, but he does not have any plan. He denies homicidal ideation , visual and auditory hallucinations. The patient is logical, coherent and relevant. Oriented x3. He has been behaving appropriately in the ER, but asking for sleeping medication quite often. PPHx: self-reported psychiatric history of OCD, anxiety, schizophrenia, alcohol and cannabis use disorder, previous psychiatric hospitalizations, one suicidal attempt by cutting, self cutting without SI, he claims that he has been treated with Seroquel 400 mg at bedtime, diazepam 10 mg 3 times daily, Depakote 500 mg twice daily, but this treatment was interrupted in group home, no significant medical history PMhx: no significant medical history Substance Hx: He reports occasional use of alcohol and marijuana Family Hx: No family psychiatric history Social Hx: Patient was born and raised in [place], he lives in [place] with his father, single, unemployed, multiple incarcerations, recently released on May 04, highest level of education is some college Tobacco Use In Past 30 Days: Yes How Often Do You Have a Drink Containing Alcohol: 4 or more times a week Hospital Course: 05/25/2018: Fair response to treatment, the patient reportedly slept 8 hours overnight however he did not feel that his sleep was restorative. Review of the patient's psychiatric history indicates that he suffers from chronic anxiety with recurrent depressive episodes and had an exacerbation after being off his medications for 2 weeks while incarcerated. Patient most likely had developed a dependency on Valium over the last 2 years which further complicated his ability to tolerate his recent incarceration. Patient reportedly has tried many different treatments for his anxiety and mood and after discussion of risks benefits side effects and alternatives he chooses to start an SSRI for treatment of anxiety and depression and continue Seroquel as an adjunctive treatment of his depression and continue buspirone as an adjunctive treatment of his anxiety. Continue inpatient stabilization and treatment but convert to voluntary status. Increase Seroquel to 400 mg at bedtime for adjunctive treatment of mood and anxiety as this dose was tolerated and effective prior to this admission. Start Cymbalta 30 mg/day for treatment of depression and anxiety. -Start buspirone 10 mg 3 times a day for adjunctive treatment of anxiety. Discharge planning: Patient reports that he has an outpatient psychiatrist but may need assistance with housing. 05/26/2018: Unsatisfactory response to treatment, the patient's anxiety and mood have yet to improve and he remains isolative to his room. He suggests that part of his isolation and anxiety is due to worsening headache and muscle tension pain. I reviewed the risks benefits side effects and alternative treatments for both anxiety and muscle tension pain extensively with the patient any expressed a clear understanding of these risks and benefits and alternatives and he chooses to restart his Valium on a much reduced dose as needed for severe anxiety and muscle tension but also the addition of Seroquel at a low-dose for mild anxiety and the addition of Robaxin as a trial of muscle tension pain and trazodone as needed for insomnia. Continue inpatient stabilization and treatment, voluntary status. Continue Seroquel to 400 mg at bedtime for adjunctive treatment of mood and anxiety as this dose was tolerated and effective prior to this admission. Continue Cymbalta 30 mg/day for treatment of depression and anxiety. -Continue buspirone 10 mg 3 times a day for adjunctive treatment of anxiety. Start trazodone 100 mg at bedtime as needed for insomnia. Give Ativan 1 mg IM x1 for treatment of severe headache and muscle tension as this was effective in his recent ER visit. Start Valium 5 mg every 12 hours as needed for moderate to severe anxiety. Start Seroquel 25 mg twice a day as needed for mild anxiety. Start Robaxin 1000 mg every 8 hours as needed for muscle tension pain. Discharge planning: Patient reports that he has an outpatient psychiatrist but may need assistance with housing. 05/27/2018: Fair response to treatment, the patient is reporting minimal improvements in mood anxiety and pain and he is motivated to continue the current treatment plan with further increases as indicated. Continue inpatient stabilization and treatment plan as already noted. Increase Cymbalta to 60 mg a day for treatment of depression and anxiety. Start melatonin 5 mg at bedtime for adjunctive treatment of chronic insomnia. 05/29/2018: Unsatisfactory response to treatment, the patient continues to obsess about his sleep and is not satisfied with the current treatments. The patient was observed over the weekend to be up and out of bed more often but generally he remained seclusive. Continue inpatient stabilization and treatment for his anxiety and depression. Anticipate further improvements with more time on his antidepressant therapy. Discontinue Seroquel due to a lack of efficacy with his sleep and complaints of side effects. Increase trazodone to 200 mg a day and change it to a scheduled dose for treatment of insomnia. Retry Ambien 10 mg at bedtime as needed for insomnia, as the patient reports that this had been mild to moderately effective in the past. Increase Valium to 10 mg twice a day as needed for anxiety as this is the primary medication is used for many years to help with anxiety with obsessive ruminations and headaches. Patient agrees to strictly as needed. 05/30/2018: Fair response to treatment, the patient's suicidal ideations have resolved and his ratings for depression and anxiety have improved. He was unable to start the regimen documented above for sleep last night because of the lack of informed consent signed. The patient will start tonight with a replacement of his Seroquel with a higher dose of trazodone and using Ambien as for delayed sleep onset. Discharge planning: The patient will need assistance with referrals for outpatient mental health treatment as well as long-term options. Anticipate discharge this week. 05/31/2018: Patient was seen and examined on the unit by psychiatry and also visited by counselor. Psychotropic medications remain well tolerated and patient reports getting the best night of sleep he has had a long time with the recent med changes. There was a good response to inpatient treatment plan noted by nursing and provider observations, and the patient reported improvements in mood, anxiety, and there was no evidence of any suicidality or homicidality at time of discharge. Psychiatric follow-up as arranged by counselor. Patient is also to follow up with primary care. I have counseled the patient to abstain from substances of abuse including cannabis and have counseled patient to return to the psychiatric emergency room for any concerning symptoms as part of a general safety plan. - Discharge Discharge Date: 05/31/18 Discharge Disposition: Home - Discharge Instructions Discharge Diet: Regular Diet - Discharge Time > 30 minutes Mental Status Examination Appearance: Appropriate Consciousness: Alert Orientation: x4 Motor Activity: Normal gait Speech: Unremarkable Language: Adequate Fund of Knowledge: Adequate Attention and Concentration: Adequate Memory: Unremarkable Mood: Anxious Affect: Appropriate Thought Process & Associations: Intact Thought Content: Appropriate Hallucination Type: None Delusion Type: None Suicidal Ideation: No Suicidal Plan: No Suicidal Intention: No Homicidal Ideation: No Homicidal Plan: No Homicidal Intention: No Insight: Fair Judgment: Impulsive Discharge/Advance Care Plan - Results Vital Signs: Last Vital Signs Temp 97.9 F 05/31/18 05:46 Pulse 64 05/31/18 05:46 Resp 18 05/31/18 05:46 BP 95/57 L 05/31/18 05:46 Pulse Ox 97 05/31/18 05:46 Lab Results: Laboratory Results Hemoglobin A1c 4.7 % (4.3-6.0) 05/25/18 06:04 Triglycerides 222 mg/dL (42-150) H 05/25/18 06:04 Cholesterol 162 mg/dL (120-200) 05/25/18 06:04 LDL Cholesterol, Calc 75 mg/dL (0-99) 05/25/18 06:04 HDL Cholesterol 42.5 mg/dL (40.0-60.0) 05/25/18 06:04 Summary of Procedures: None to report Pending Results: None - Medications Number of antipsychotic medications at discharge: 0 - Discharge Care Plan Goals to Promote Your Health: * To prevent worsening of your condition and complications * To maintain your health at the optimal level Directions to Meet Your Goals: Take your medications as prescribed Follow your dietary instruction Follow activity as directed Keep your appointments as scheduled Take your immunizations and boosters as scheduled If your symptoms worsen call your PCP, if no PCP go to Urgent Care Center or Emergency Room For 27/12 questions related to your inpatient stay or results of tests pending at discharge, please contact Dr. Prasanth Stovall MD at Smoking is Dangerous to Your Health. Avoid second hand smoking
[2018-05-31] MEDS: Methocarbamol 500 MG Tablet PO PRN (12:49)
[2018-05-31] MEDS: Melatonin 5 MG Tablet PO SCH (20:04)
[2018-05-31] MEDS: Propranolol LA 60 MG Capsule PO SCH (20:04)
[2018-05-31] MEDS: traZODone 50 MG Tablet PO SCH (20:04)
== END 2018-05-31 20:58 | disposition home or self-care (01) ==
LOC: NEDAMB 21:23 → NEDA 05-24 09:50 → H270 05-24 11:05
PROVIDERS: ADMIT Psychiatry & Neurology Psychiatry; ATTEND Psychiatry & Neurology Psychiatry